=== PATIENT | female | born 1980 | race Caucasian/White ===

== ENCOUNTER → 2017-09-01 | Outpatient (CLI) | payer OTHER ==
--- NOTE | 2017-09-02 09:18 | RAD ---
EXAM DESCRIPTION: Chest,2 Views CLINICAL HISTORY: WHEEZING COMPARISON: None TECHNIQUE: PA/lateral FINDINGS: There is no acute appearing cardiac or pulmonary abnormality. Heart size is normal with normal pulmonary vascularity. No pleural effusion or pneumothorax. Lungs are clear with no consolidating infiltrate. Lateral view shows intact sternum and T-spine. IMPRESSION: No acute process is identified in the chest. Electronically signed by: Noah Bateman MD 09/02/2017 9:16 AM CDT
== END ==
LOC: YCFC.O 10:29
PROVIDERS: ATTEND Nurse Practitioner Family
DX: Z00.00 Encounter for general adult medical examination without abnormal findings (principal); R00.9 Unspecified abnormalities of heart beat; R06.2 Wheezing; R53.83 Other fatigue; N95.9 Unspecified menopausal and perimenopausal disorder; Z13.220 Encounter for screening for lipoid disorders

== ENCOUNTER 2020-01-03 21:35 | Emergency (ER) | payer SELFPAY ==
[2020-01-03 22:07] VITALS: TEMP 98.7
[2020-01-03] MEDS: DEXAMETHASONE INJ 10 MG/ML VIAL IV ONE (22:27)
[2020-01-03] MEDS: ONDANSETRON INJ 4 MG/2 ML VIAL IV ONE (22:27)
--- NOTE | 2020-01-03 22:41 | ED.PDOC ---
History of Present Illness - General Chief Complaint: Respiratory Problem Stated Complaint: I have COVID and I can't breathe Time Seen by Provider: 01/03/20 22:05 - History of Present Illness Initial Comments: 39 yo F PMH recent covid positive diagnosis 2 days ago in [place] presents to ED c/o worsening sob myalgias fever nausea vomiting diarrhea non bilious non bloody. 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 Admits tmax 103 chills denies chest pain admits sob diaphoresis also reports decreased appetite disturbed rest no change in bladder. Denies drinking or smoking no other c/o today. PPE worn-N95 surgical mask with attached face shield over N95 gloves gown goggles and face shield over that Allergies/Adverse Reactions: Allergies NO KNOWN ALLERGY Allergy (Verified 08/04/19 09:33) Home Medications: Ambulatory Orders Benzocaine (Mouth-Throat) [Chloraseptic Warming Sore] 15 mg MT Q4HR PRN #20 lazaro 08/04/19 Ibuprofen [Motrin] 400 mg PO Q6HR PRN #20 tab 08/04/19 Acetaminophen [Tylenol] 650 mg PO Q6H PRN #30 tab 01/03/20 Azithromycin Tab [Zithromax Tab] 250 mg PO QDPC 5 Days #6 tab 01/03/20 Review of Systems - Review of Systems Constitutional: States: see HPI EENTM: States: see HPI Respiratory: States: see HPI Cardiology: States: see HPI Gastrointestinal/Abdominal: States: see HPI Genitourinary: States: see HPI Musculoskeletal: States: see HPI Skin: States: see HPI Neurological: States: see HPI Endocrine: States: see HPI All other Systems: Reviewed and Negative Past Medical History (General) - Patient Medical History Hx Seizures: No Hx Stroke: No Hx Dementia: No Hx Asthma: No Hx of COPD: No Hx Cardiac Disorders: No Hx Congestive Heart Failure: No Hx Pacemaker: No Hx Hypertension: No Hx Thyroid Disease: No Hx Diabetes: No Hx Renal Disease: No Hx Cancer: No Hx of HIV: No Hx MRSA: No Surgical History: Hysterectomy - Vaccination History Hx Tetanus, Diphtheria Vaccination: No Hx Influenza Vaccination: No Hx Pneumococcal Vaccination: No Immunizations Up to Date: No - Social History Hx Tobacco Use: No Hx Alcohol Use: Yes - Social/occasional Hx Substance Use: No Hx Substance Use Treatment: No Hx Depression: No - Female History Patient : No - Hyst Family Medical History - Family History Mother Family History: No Known Living Status: Still Living Physical Exam - Physical Exam General Appearance: No apparent distress Eye Exam: bilateral normal Ears, Nose, Throat: normal ENT inspection Neck: non-tender, full range of motion Respiratory: no respiratory distress Cardiovascular/Chest: regular rate, rhythm, tachycardia Gastrointestinal/Abdominal: non tender, soft Rectal Exam: deferred Back Exam: normal inspection Extremity: normal range of motion, non-tender Neurologic: no motor/sensory deficits Skin Exam: normal color Progress - Progress Progress: 01/03/20 22:43 A/P-COVID, SOB, Nausea Vomiting Diarrhea Tachycardia-iv bolus decadron monitor and storage bin tender pulse ox ekg cxr cbc cmp trop cta chest reassess 01/03/20 22:46 EKG-non specific TW changes Sinus Tachycardia 108bpm 01/03/20 23:43 On reassessment feels better and wishes to go home refused CTA Laboratory Tests 01/03/20 01/03/20 01/03/20 22:06 22:06 22:06 WBC 4.9 RBC 3.89 L Hgb 11.7 L Hct 33.8 L MCV 86.9 MCH 30.2 MCHC 34.8 RDW 13.6 Plt Count 237 MPV 8.4 Absolute Neuts (auto) 3.90 Absolute Lymphs (auto) 0.70 L Absolute Monos (auto) 0.30 Absolute Eos (auto) 0.00 Absolute Basos (auto) 0.00 Neutrophils % 79.4 H Lymphocytes % 14.7 L Monocytes % 5.1 Eosinophils % 0.0 L Basophils % 0.8 PT INR PTT (SP) Sodium 135 Potassium 3.4 L Chloride 105 Carbon Dioxide 21 Anion Gap 12.4 BUN 11 Creatinine 0.79 BUN/Creatinine Ratio 13.9 Random Glucose 103 Serum Osmolality 269.8 L Calcium 8.2 L Total Bilirubin 0.3 AST 24 ALT 16 Alkaline Phosphatase 41 L Troponin I < 0.02 Serum Total Protein 7.0 Albumin 3.4 Globulin 3.6 H Albumin/Globulin Ratio 0.9 L 01/03/20 22:49 WBC RBC Hgb Hct MCV MCH MCHC RDW Plt Count MPV Absolute Neuts (auto) Absolute Lymphs (auto) Absolute Monos (auto) Absolute Eos (auto) Absolute Basos (auto) Neutrophils % Lymphocytes % Monocytes % Eosinophils % Basophils % PT 10.7 INR 1.08 PTT (SP) 26.0 Sodium Potassium Chloride Carbon Dioxide Anion Gap BUN Creatinine BUN/Creatinine Ratio Random Glucose Serum Osmolality Calcium Total Bilirubin AST ALT Alkaline Phosphatase Troponin I Serum Total Protein Albumin Globulin Albumin/Globulin Ratio EXAM DESCRIPTION: XR CHEST, 1 VIEW CLINICAL HISTORY: sob positive covid TECHNIQUE: Single frontal view of the chest is submitted. COMPARISON: 09/01/2017 FINDINGS: Heart: The cardiothoracic silhouette is within normal limits. Lungs: Patchy multifocal opacities on the right. Mediastinum: Unremarkable Pleura: No appreciable effusion. No pneumothorax. Bones: Intact Upper abdomen: Unremarkable IMPRESSION: Multifocal infiltrates on the right. Differential diagnosis includes viral infections. Electronically signed by: Sparkle Márquez MD 01/03/2020 10:45 PM CDT COVID Pneumonia 01/03/20 23:55 PSxHx Hysterectomy Called patient at [phone] - Results/Orders Results/Orders: On reassessment pt looking and feeling much better than when she came in refused CTA chest 10:48pm Departure - Departure Clinical Impression: COVID-19, Multifocal pneumonia, Gastroenteritis, SOB (shortness of breath) Time of Disposition: 23:59 Disposition: Discharge to Home or Self Care Condition: Good Departure Forms: ED Discharge - Pt. Copy, Patient Portal Self Enrollment Referrals: Jamal Hutchins MD [Primary Care Provider] - 1-2 Days Prescriptions: Acetaminophen [Tylenol] 650 mg PO Q6H PRN #30 tab PRN Reason: Pain Azithromycin Tab [Zithromax Tab] 250 mg PO QDPC 5 Days #6 tab Home Medications: Ambulatory Orders Benzocaine (Mouth-Throat) [Chloraseptic Warming Sore] 15 mg MT Q4HR PRN #20 lazaro 08/04/19 Ibuprofen [Motrin] 400 mg PO Q6HR PRN #20 tab 08/04/19 Acetaminophen [Tylenol] 650 mg PO Q6H PRN #30 tab 01/03/20 Azithromycin Tab [Zithromax Tab] 250 mg PO QDPC 5 Days #6 tab 01/03/20
--- NOTE | 2020-01-03 22:47 | RAD ---
EXAM DESCRIPTION: XR CHEST, 1 VIEW CLINICAL HISTORY: sob positive covid TECHNIQUE: Single frontal view of the chest is submitted. COMPARISON: 09/01/2017 FINDINGS: Heart: The cardiothoracic silhouette is within normal limits. Lungs: Patchy multifocal opacities on the right. Mediastinum: Unremarkable Pleura: No appreciable effusion. No pneumothorax. Bones: Intact Upper abdomen: Unremarkable IMPRESSION: Multifocal infiltrates on the right. Differential diagnosis includes viral infections. Electronically signed by: Sparkle Márquez MD 01/03/2020 10:45 PM CDT
[2020-01-03] MEDS: SODIUM CHLORIDE 0.9% 1000ML 1,000 ML IVS ONE (22:53)
[2020-01-03 23:32] VITALS: BP 106/62; O2SAT 95
== END 2020-01-04 00:12 | disposition home or self-care (01) ==
LOC: ER 21:35
DX: U07.1 COVID-19 (principal); K52.9 Noninfective gastroenteritis and colitis, unspecified; J12.89 Other viral pneumonia; R06.02 Shortness of breath
CPT/HCPCS: 36415; 71045; 80053; 84484; 85025; 85610; 85730; 93005; 94760; J1100; J2405; J7030